=== PATIENT | female | born 1985 | race Caucasian/White ===

== ENCOUNTER → 2016-12-31 21:24 | Emergency (ER) | payer BC ==
[~2016-12-31 21:24] MED LIST: Ketorolac INJ* 30 MG/ML 1 ML VIAL IV PUSH ONE; LORazepam INJ* 2 MG/ML 1 ML VIAL IV PUSH ONE; NS 0.9% 1000 ML* 1,000 ML IV ONE
--- NOTE | 2016-12-31 22:29 | ED ---
Yasir Cosby Aidan, scribed for Kayden Griffin MD on 12/31/16 at 2224 . 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 Ibuprofen did not alleviate any of her back pain. Today, while lying down after work, her back pain worsened, so she came in to the ED. Pt is allergic to perdiem and Vicodin. - History of Current Complaint Chief Complaint: EDBackInjuryPain Stated Complaint: BACK PAIN RADIATING DOWN LEGS Time Seen by Provider: 12/31/16 22:05 Hx Obtained From: Patient Hx Last Menstrual Period: 3 MONTHS AGO Onset/Duration: Sudden Onset, Lasting Days, Still Present Onset/Duration: Started Days Ago, Still Present Timing: Constant - however, her back pain worsened today while lying down Back Pain Location: Is Diffuse Severity Initially: Severe Severity Currently: Moderate - [id number] Pain Intensity: 8 Pain Scale Used: 0-10 Numeric Character: Sharp Aggravating Symptom(s): Nothing - lying down seemed to aggravate her pain today. Alleviating Symptom(s): Nothing - unknown Associated Signs And Symptoms: Positive: Other - some light red vaginal bleeding just after the incident that caused her back pain Related History: Occupational Injury - Risk Factors AAA Risk Factors: Hypertension TAD Risk Factors: Hypertension - Allergies/Home Medications Allergies/Adverse Reactions: Allergies Allergy/AdvReac Type Severity Reaction Status Date / Time Cefaclor [From Ceclor] Allergy Rash Verified 11/03/15 17:43 Hydrocodone [From Vicodin] Allergy Hives Verified 11/03/15 17:43 Phenazopyridine Allergy Rash Verified 11/03/15 17:43 [From Pyridium] PMH/Surg Hx/FS Hx/Imm Hx Endocrine/Hematology History: Denies: Hx Diabetes, Hx Thyroid Disease Cardiovascular History: Reports: Hx Hypertension Denies: Hx Congestive Heart Failure Respiratory History: Denies: Hx Asthma, Hx Chronic Obstructive Pulmonary Disease (COPD) GI History: Denies: Hx Ulcer History: Denies: Hx Renal Disease - Surgical History Surgery Procedure, Year, and Place: R foot FB Infectious Disease History: No Infectious Disease History: Denies: Hx Hepatitis, Hx Human Immunodeficiency Virus (HIV), Traveled Outside the [place] in Last 30 Days - Family History Known Family History: Positive: Hypertension, Diabetes - Social History Occupation: Employed Full-time Lives: With Family Alcohol Use: Occasionally Substance Use Type: Reports: None Smoking Status (MU): Never Smoked Tobacco Review of Systems Constitutional: Negative Eyes: Negative ENT: Negative Cardiovascular: Negative Respiratory: Negative Gastrointestinal: Negative Genitourinary: Negative Positive: hematuria - light red vaginal bleeding post accident. Negative: burning, dysuria, discharge, frequency, flank pain, incontinence, pain, urgency Positive: Arthralgia - back pain. Negative: Myalgia, Decreased ROM, Edema Skin: Negative Neurological: Negative Psychological: Normal All Other Systems Reviewed And Are Negative: Yes Physical Exam Triage Information Reviewed: Yes Vital Signs On Initial Exam: Initial Vitals Temp Pulse Resp BP Pulse Ox 98.4 F 106 20 142/90 98 12/31/16 21:35 12/31/16 21:35 12/31/16 21:35 12/31/16 21:35 12/31/16 21:35 Vital Signs Reviewed: Yes Appearance: Positive: Well-Appearing, Pain Distress - mild discomfort Skin: Positive: Warm Head/Face: Positive: Normal Head/Face Inspection Eyes: Positive: LISA ENT: Positive: Hearing grossly normal Neck: Positive: Supple Respiratory/Lung Sounds: Positive: Clear to Auscultation, Breath Sounds Present Cardiovascular: Positive: RRR Abdomen Description: Positive: Nontender, Soft Musculoskeletal: Positive: Other - mild lower lumbar paraspinal spasm Neurological: Positive: Sensory/Motor Intact, Alert, Oriented to Person Place, Time Psychiatric: Positive: Affect/Mood Appropriate Diagnostics - Vital Signs Vital Signs Temp Pulse Resp BP Pulse Ox 12/31/16 21:40 98.4 F 106 20 142/90 98 12/31/16 21:35 98.4 F 106 20 142/90 98 - Laboratory Result Diagrams: 12/31/16 22:51 12/31/16 22:51 Lab Statement: Any lab studies that have been ordered have been reviewed, and results considered in the medical decision making process. 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 After providing the patient with pain medication, conducting a thorough examination, and providing her with perscriptions, it has been determined that she is ready for discharge. Dx of low back pain. - Diagnoses Provider Diagnoses: Low back pain Discharge - Discharge Plan Condition: Stable Disposition: HOME Discharge Disposition Comment: Please follow up with your primary care physician within 2 days. Prescriptions: Cyclobenzaprine TAB* [Flexeril 10 MG TAB*] 10 mg PO TID #30 tab Ibuprofen TAB* [Motrin TAB* 800 MG] 800 mg PO TID #30 tab Patient Education Materials: Back Pain (ED) Referrals: Jim Arriaza MD [Primary Care Provider] - The documentation as recorded by the Yasir shipman Aidan accurately reflects the service I personally performed and the decisions made by me, Kayden Griffin MD.
[2016-12-31 23:10] LABS: Hematocrit 41 % (35-47); Hemoglobin 13.2 g/dl (12.0-16.0); Mean Corpuscular HGB Conc 32 g/dl (31-36); Mean Corpuscular Hemoglobin 25 pg (27-31); Mean Corpuscular Volume 78 fL (80-97); Mean Platelet Volume 9 um3 (7.4-10.4); Red Blood Count 5.23 10^6/ul (4.0-5.4); Red Cell Distribution Width 16 % (10.5-15); White Blood Count 7.4 10^3/ul (3.5-10.8)
[2016-12-31 23:24] LABS: Anion Gap 7 mmol/L (2-11); BUN/Creatinine Ratio 18.4 (8-20); Blood Urea Nitrogen 16 mg/dL (6-24); CO2 Carbon Dioxide 24 mmol/L (22-32); Calcium 8.7 mg/dL (8.6-10.3); Chloride 102 mmol/L (101-111); Glucose 117 mg/dL (70-100); Potassium 3.7 mmol/L (3.5-5.0); Sodium 133 mmol/L (133-145)
[2016-12-31 23:25] VITALS: BP 128/77
== END | disposition home or self-care (01) ==
LOC: ED 21:24
DX: M54.5 Low back pain (principal); R31.9 Hematuria, unspecified
CPT/HCPCS: 36415; 80048; 84702; 85025; 96374; 96375; 99283; J1885; J2060

== ENCOUNTER 2017-02-25 19:44 | Emergency (ER) | payer SELFPAY ==
[2017-02-25 19:51] VITALS: BP 146/90
--- NOTE | 2017-02-25 21:27 | RAD ---
INDICATION: Trauma, low back pain. COMPARISON: There are no prior studies available for comparison. TECHNIQUE: 5 views of the lumbar spine were obtained including lateral, oblique, AP and a coned-down lateral view of the lumbar sacral junction. FINDINGS: There is a mild scoliosis convex toward the right side. The vertebra are otherwise in normal alignment. No fracture is seen. Disc spaces appear maintained. IMPRESSION: NO EVIDENCE FOR FRACTURE.
--- NOTE | 2017-02-25 21:28 | RAD ---
INDICATION: Sacrococcygeal injury. COMPARISON: There are no prior studies available for comparison. TECHNIQUE: 3 views of the sacrococcygeal spine were obtained. FINDINGS: The vertebra are in normal alignment. No fracture is seen. IMPRESSION: NO EVIDENCE FOR FRACTURE.
--- NOTE | 2017-02-25 21:29 | RAD ---
INDICATION: Right ankle injury. TECHNIQUE: 3 views of the right ankle were obtained. FINDINGS: There is diffuse soft tissue swelling which is most prominent along the lateral aspect of the ankle. The bones are normal alignment. No fracture is seen. Joint spaces appear maintained. IMPRESSION: SOFT TISSUE SWELLING, NO FRACTURE IS SEEN.
--- NOTE | 2017-02-25 21:31 | RAD ---
INDICATION: Right foot injury. TECHNIQUE: 3 views of the right foot were obtained. FINDINGS: There is soft tissue swelling present along the dorsal aspect of the foot. The bones are in normal alignment. No fracture is seen. Joint spaces appear maintained. IMPRESSION: SOFT TISSUE SWELLING, NO FRACTURE IS SEEN.
--- NOTE | 2017-02-25 22:14 | UC ---
Yasir Cosby Aidan, scribed for Katerin Mcnulty MD on 02/25/17 at 2053 . Back Pain HPI - HPI Summary HPI Summary: 31 y/o female presents to the Urgent Care with a complaint of acute, constant, moderate (7/10) lower back pain that resulted after slipping down a bank and landing on her back while fishing. Associated symptoms include right ankle pain , right ankle swelling, and lower extremity pain bilaterally. 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 Around 1600 tonight, she took Ibuprofen, which did not alleviate much pain. - History of Current Complaint Chief Complaint: UCBackPain Stated Complaint: ANKLE AND BACK INJURY FROM A FALL Time Seen by Provider: 02/25/17 20:29 Hx Obtained From: Patient Hx Last Menstrual Period: 3 MONTHS AGO ?: No Onset/Duration: Sudden Onset, Lasting Days, Still Present Timing: Constant Severity Initially: Moderate Severity Currently: Moderate Pain Intensity: 7 - per nurse's note Pain Scale Used: 0-10 Numeric Back Pain: Is Diffuse - @ lower back, Is Discrete @ - right ankle Character: Aching Aggravating: Nothing - unknown Alleviating: Nothing - unknown Associated Signs And Symptoms: Positive: Swelling - @ right ankle, Other - right ankle pain, bilateral lower extremity pain Related History: Occupational Injury - Pt reinjured her back 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 at work (see HPI) - Allergies/Home Medications Allergies/Adverse Reactions: Allergies Allergy/AdvReac Type Severity Reaction Status Date / Time Cefaclor [From Ceclor] Allergy Rash Verified 02/25/17 19:51 Hydrocodone [From Vicodin] Allergy Hives Verified 02/25/17 19:51 Phenazopyridine Allergy Rash Verified 02/25/17 19:51 [From Pyridium] PMH/Surg Hx/FS Hx/Imm Hx - Surgical History Surgical History: Yes Surgery Procedure, Year, and Place: R foot FB - Family History Known Family History: Positive: Hypertension, Diabetes - Social History Occupation: Employed Full-time Lives: With Family Alcohol Use: None Substance Use Type: None Smoking Status (MU): Never Smoked Tobacco Review of Systems Constitutional: Negative Skin: Negative Eyes: Negative ENT: Negative Respiratory: Negative Cardiovascular: Negative Gastrointestinal: Negative Genitourinary: Negative Motor: Negative Neurovascular: Negative Musculoskeletal: Arthralgia - BACK PAIN, ANKLE PAIN WITH ASSOCIATED SWELLING Neurological: Negative Psychological: Negative All Other Systems Reviewed And Are Negative: Yes Physical Exam Triage Information Reviewed: Yes Appearance: Well-Nourished Vital Signs: Initial Vital Signs Temp 97.4 F 02/25/17 19:48 Pulse 90 02/25/17 19:48 Resp 18 02/25/17 19:48 BP 146/90 02/25/17 19:48 Pulse Ox 100 02/25/17 19:48 Vital Signs Reviewed: Yes Eye Exam: Normal ENT Exam: Normal ENT: Positive: Normal ENT inspection Neck exam: Normal Neck: Positive: Supple, Nontender, No Lymphadenopathy Respiratory Exam: Normal, Other - no dyspnea, no tachypnea, normal respiratory rate Cardiovascular Exam: Normal Cardiovascular: Positive: RRR, No Murmur, Pulses Normal, Brisk Capillary Refill , Other: - good general skin color, Abdominal Exam: Normal Abdomen Description: Positive: Nontender, No Organomegaly, Soft Bowel Sounds: Positive: Present Musculoskeletal: Positive: Strength Intact, Other: - tenderness over the lateral malleolus on right side and tenderness over talofibular region on the right sideno proximal tib/fib tenderness on the right, no proximal tib/fib tenderness on the right, DP&PT good, no tenderness to the left foot, she does have diffuse lumbar sacral tenderness, DTRs: BR Patella are 2+ equal bilat. Neurological Exam: Normal, Other - nonfocal, grossly intact Neurological: Positive: Alert Psychological Exam: Normal, Other - responds easily and appropriately Psychological: Positive: Age Appropriate Behavior Skin Exam: Normal, Other - no visible or reported rash Diagnostics - Radiology FOOT X-RAY Xray Interpretation: No Acute Changes - IMPRESSION: Mild tissue swelling, no fracture is seen. Radiology Interpretation Completed By: Radiologist SACRUM AND COCCYX Xray Interpretation: No Acute Changes - IMPRESSION: No fracture is seen Radiology Interpretation Completed By: Radiologist ANKLE X-RAY Xray Interpretation: No Acute Changes - IMPRESSION: Soft tissue swelling. No fracture is seen Radiology Interpretation Completed By: Radiologist LUMBAR SPINE X-RAY Xray Interpretation: No Acute Changes - IMPRESSION: No evidence for fracture Radiology Interpretation Completed By: Radiologist Back Pain Course/Dx - Course Course Of Treatment: no new problems in ccc. reviewed xray results, and need for f/u. crutches considered but not feasible 2/2 back injury. cam boot today , but will send home with gel splint in case back hurts from misbalance. d/w pt. allergy to hydrocodone. rx - ibuprofen, flexeril (d/w pt). work note until tuesday (declines longer) - Differential Dx/Diagnosis Provider Diagnoses: acute ankle sprain. low back sprain Discharge - Discharge Plan Condition: Stable Disposition: HOME Prescriptions: Cyclobenzaprine TAB* [Flexeril 10 MG TAB*] 10 mg PO TID PRN #20 tab PRN Reason: Spasms Ibuprofen TAB* [Motrin TAB* 800 MG] 800 mg PO Q8H PRN #30 tab PRN Reason: Pain Patient Education Materials: Ankle Sprain (ED), Low Back Strain (ED) Forms: *Work Release Referrals: Mady Guzman NP [Primary Care Provider] - Additional Instructions: Follow up with your primary care provider next week, if possible for a recheck. Seek medical attention sooner for worse or new problems in the meantime. The documentation as recorded by the Yasir shipman Aidan accurately reflects the service I personally performed and the decisions made by me, Katerin Mcnulty MD.
== END 2017-02-25 22:16 | disposition home or self-care (01) ==
LOC: UCEAST 19:44
DX: S93.401A Sprain of unspecified ligament of right ankle, initial encounter (principal); S33.5XXA Sprain of ligaments of lumbar spine, initial encounter; W01.0XXA Fall on same level from slipping, tripping and stumbling without subsequent striking against object, initial encounter; Z88.5 Allergy status to narcotic agent
CPT/HCPCS: 72110; 72220; 99213; G0463

== ENCOUNTER 2018-03-10 18:52 | Emergency (ER) | payer BC ==
--- NOTE | 2018-03-10 21:10 | RAD ---
INDICATION: Chest pain COMPARISON: None TECHNIQUE: PA and lateral views of the chest were obtained. FINDINGS: The heart and mediastinum are normal in size and contour. The lungs are grossly clear. There is no evidence of large pleural effusion. Visualized bones are normal for the patient's age. There is no radiographic evidence of free air beneath the diaphragm IMPRESSION: No radiographic evidence of acute cardiopulmonary disease.
[2018-03-10 21:25] LABS: Urine Appearance Cloudy; Urine Blood Negative (Negative); Urine Color Straw; Urine Ketones Negative (Negative); Urine Protein Negative (Negative); Urine Specific Gravity 1.009 (1.010-1.030); Urine Urobilinogen Negative (Negative)
[2018-03-10 21:59] LABS: ABS Basophils 0.1 10^3/ul (0-0.2); ABS Eosinophils 0.2 10^3/ul (0-0.6); ABS Lymphocytes 3.2 10^3/ul (1.0-4.8); ABS Monocytes 0.8 10^3/ul (0-0.8); ABS Neutrophils 5.3 10^3/ul (1.5-7.7); ABS Nucleated RBC 0 10^3/ul; Eosinophil % 1.6 % (0-6); Hematocrit 43 % (35-47); Hemoglobin 14.4 g/dl (12.0-16.0); Lymphocyte % 33.3 % (25-47); Mean Corpuscular HGB Conc 34 g/dl (31-36); Mean Corpuscular Hemoglobin 27 pg (27-31); Mean Corpuscular Volume 80 fL (80-97); Mean Platelet Volume 9.2 um3 (7.4-10.4); Nucleated Red Blood Cells % 0; Platelet Count 296 10^3/ul (150-450); Red Blood Count 5.41 10^6/ul (4.00-5.40); Red Cell Distribution Width 15 % (10.5-15); White Blood Count 9.5 10^3/ul (3.5-10.8)
[2018-03-10 22:13] LABS: INR 1.07 (0.77-1.02)
[2018-03-10 22:20] LABS: EGFR Non-African American 72.6 (>60)
[2018-03-10] MEDS ORDERED: Ketorolac INJ* 30 MG/ML 1 ML VIAL IM ONE (23:10)
[2018-03-10] MEDS ORDERED: Cyclobenzaprine TAB* 10 MG PO ONE (23:29)
[2018-03-11] MEDS ORDERED: Magnesium Oxide TAB* 400 MG PO ONE (00:30)
[2018-03-11 01:19] VITALS: BP 136/101
--- NOTE | 2018-03-12 13:13 | ED ---
Graham Cosby Rebecca, scribed for Natty Shell MD on 03/10/18 at 2048 . HPI Chest Pain - HPI Summary HPI Summary: Pt is a 32 y/o F who presents to ED c/o central CP for 2 days. Sx have been intermittent since onset, characterized as sharp. Currently, pain is moderate, ranked 6/10 and has been taking Ibuprofen which is not improved sx. Pain is worse with lying down and radiates to and from her mid back. Additionally c/o LE cramping and GALICIA. Notes swelling in her bilateral hands and feet for which she is on Furosemide. Denies nausea. Confirms that her urine has not been abnormally colored.(mother has porphyria). No prior similar episodes. Is currently on Furosemide (20 mg) and amlodipine (20 mg BP has been in 120s). 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 Has an IUD, so she has not had a period in at least a year. FHx porphyria (mother). - History of Current Complaint Chief Complaint: EDChestPainROMI Hx Obtained From: Patient Hx Last Menstrual Period: 3 MONTHS AGO, has IUD Onset/Duration: Started Days Ago - 2 days, Still Present Timing: Intermittent Current Severity: Moderate Pain Intensity: 6 Pain Scale Used: 0-10 Numeric Chest Pain Location: Mid Sternal Chest Pain Radiates: Yes Chest Pain Radiates To:: Back Character: Sharp/Stabbing Aggravating Factor(s): Recumbent Position Alleviating Factor(s): Nothing Associated Signs and Symptoms: Positive: Chest Pain, Other: - LE cramping. Negative: Nausea - Allergy/Home Medications Allergies/Adverse Reactions: Allergies Allergy/AdvReac Type Severity Reaction Status Date / Time acetaminophen [From Vicodin] Allergy Hives Verified 03/10/18 19:18 cefaclor [From Ceclor] Allergy Rash Verified 03/10/18 19:18 hydrocodone [From Vicodin] Allergy Hives Verified 03/10/18 19:18 phenazopyridine Allergy Rash Verified 03/10/18 19:18 [From Pyridium] PMH/Surg Hx/FS Hx/Imm Hx Previously Healthy: No Endocrine/Hematology History: Denies: Hx Diabetes, Hx Thyroid Disease Cardiovascular History: Reports: Hx Hypertension Denies: Hx Congestive Heart Failure Respiratory History: Denies: Hx Asthma, Hx Chronic Obstructive Pulmonary Disease (COPD) GI History: Denies: Hx Ulcer History: Denies: Hx Renal Disease Musculoskeletal History: Reports: Other Musculoskeletal History - 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 - Surgical History Surgery Procedure, Year, and Place: R foot FB - Immunization History Date of Tetanus Vaccine: utd Date of Influenza Vaccine: utd Infectious Disease History: No Infectious Disease History: Denies: Hx Hepatitis, Hx Human Immunodeficiency Virus (HIV), Traveled Outside the [place] in Last 30 Days - Family History Known Family History: Positive: Hypertension, Diabetes, Other - porphyria ( mother) - Social History Lives: With Family Alcohol Use: None Substance Use Type: Reports: None Smoking Status (MU): Never Smoked Tobacco Review of Systems Negative: Fever Positive: Chest Pain Respiratory: Negative Negative: Nausea Positive: Other - LE cramping, bilateral hand and foot swelling Skin: Negative Positive: Headache Psychological: Normal All Other Systems Reviewed And Are Negative: Yes Physical Exam - Summary Physical Exam Summary: Appearance: Well-appearing, moderate pain distress, obese Skin: Warm, color reflects adequate perfusion, dry Head: Normal Head/Face inspection, atraumatic Eyes: Conjunctiva clear ENT: Normal inspection Neck: Supple, no nodes, no JVD Respiratory: Lungs clear, normal breath sounds, no respiratory distress Cardio: RRR, No murmur, pulses normal, brisk capillary refill, chest pain is reproducible, but not completely the same Abdomen: Soft, nontender Bowel sounds: Present Musculoskeletal: Strength Intact/ROM intact, no calf tenderness, no edema. No CVAT, no spinal tenderness Psychological: Normal Neuro: Alert, muscle tone normal, no focal deficit Triage Information Reviewed: Yes Vital Signs On Initial Exam: Initial Vitals Temp Pulse Resp BP Pulse Ox 97.6 F 90 16 148/108 100 03/10/18 19:18 03/10/18 19:18 03/10/18 19:18 03/10/18 19:18 03/10/18 19:18 Vital Signs Reviewed: Yes Diagnostics - Vital Signs Vital Signs Temp Pulse Resp BP Pulse Ox 03/10/18 19:18 97.6 F 90 16 148/108 100 - Laboratory Lab Results: Lab Results 03/10/18 03/10/1818 Range/Units 21:00 21:00 21:50 WBC 9.5 (3.5-10.8) 10^3/ul RBC 5.41 H (4.00-5.40) 10^6/ul Hgb 14.4 (12.0-16.0) g/dl Hct 43 (35-47) % MCV 80 (80-97) fL MCH 27 (27-31) pg MCHC 34 (31-36) g/dl RDW 15 (10.5-15) % Plt Count 296 (150-450) 10^3/ul MPV 9.2 (7.4-10.4) um3 Neut % (Auto) 55.7 (38-83) % Lymph % (Auto) 33.3 (25-47) % [place] % (Auto) 8.6 H (0-7) % Eos % (Auto) 1.6 (0-6) % Baso % (Auto) 0.8 (0-2) % Absolute Neuts (auto) 5.3 (1.5-7.7) 10^3/ul Absolute Lymphs (auto) 3.2 (1.0-4.8) 10^3/ul Absolute Monos (auto) 0.8 (0-0.8) 10^3/ul Absolute Eos (auto) 0.2 (0-0.6) 10^3/ul Absolute Basos (auto) 0.1 (0-0.2) 10^3/ul Absolute Nucleated RBC 0 10^3/ul Nucleated RBC % 0 INR (Anticoag Therapy) (0.77-1.02) APTT (26.0-36.3) seconds D-Dimer, Quantitative (Less Than 230) ng/mL Sodium (135-145) mmol/L Potassium (3.5-5.0) mmol/L Chloride (101-111) mmol/L Carbon Dioxide (22-32) mmol/L Anion Gap (2-11) mmol/L BUN (6-24) mg/dL Creatinine (0.51-0.95) mg/dL Est GFR ( Amer) (>60) Est GFR (Non-Af Amer) (>60) BUN/Creatinine Ratio (8-20) Glucose (70-100) mg/dL Lactic Acid (0.5-2.0) mmol/L Calcium (8.6-10.3) mg/dL Magnesium (1.9-2.7) mg/dL Total Bilirubin (0.2-1.0) mg/dL AST (13-39) U/L ALT (7-52) U/L Alkaline Phosphatase (34-104) U/L Total Creatine Kinase (10-223) U/L CK-MB (CK-2) (0.6-6.3) ng/mL Troponin I (<0.04) ng/mL B-Natriuretic Peptide ( - 100) pg/mL Total Protein (6.4-8.9) g/dL Albumin (3.2-5.2) g/dL Globulin (2-4) g/dL Albumin/Globulin Ratio (1-3) TSH (0.34-5.60) mcIU/mL Thyroxine (T4) (6.09-12.23) mcg/mL Beta HCG, Quant mIU/mL Urine Color Straw Urine Appearance Cloudy Urine pH 6.0 (5-9) Ur Specific [place] 1.009 L (1.010-1.030) Urine Protein Negative (Negative) Urine Ketones Negative (Negative) Urine Blood Negative (Negative) Urine Nitrate Negative (Negative) Urine Bilirubin Negative (Negative) Urine Urobilinogen Negative (Negative) Ur Leukocyte Esterase Trace A (Negative) Urine WBC (Auto) Trace(0-5/hpf) (Absent) Urine RBC (Auto) 1+(3-5/hpf) A (Absent) Ur Squamous Epith Cells Present A (Absent) Urine Bacteria 1+ A (Absent) Urine Glucose Negative (Negative) Urine Opiates Screen None detected (None Detect) Ur Barbiturates Screen None detected (None Detect) Ur Phencyclidine Scrn None detected (None Detect) Ur Amphetamines Screen None detected (None Detect) U Benzodiazepines Scrn None detected (None Detect) Urine Cocaine Screen None detected (None Detect) U Cannabinoids Screen None detected (None Detect) 03/10/18 03/10/18 03/10/18 Range/Units 21:50 21:50 21:50 WBC (3.5-10.8) 10^3/ul RBC (4.00-5.40) 10^6/ul Hgb (12.0-16.0) g/dl Hct (35-47) % MCV (80-97) fL MCH (27-31) pg MCHC (31-36) g/dl RDW (10.5-15) % Plt Count (150-450) 10^3/ul MPV (7.4-10.4) um3 Neut % (Auto) (38-83) % Lymph % (Auto) (25-47) % [place] % (Auto) (0-7) % Eos % (Auto) (0-6) % Baso % (Auto) (0-2) % Absolute Neuts (auto) (1.5-7.7) 10^3/ul Absolute Lymphs (auto) (1.0-4.8) 10^3/ul Absolute Monos (auto) (0-0.8) 10^3/ul Absolute Eos (auto) (0-0.6) 10^3/ul Absolute Basos (auto) (0-0.2) 10^3/ul Absolute Nucleated RBC 10^3/ul Nucleated RBC % INR (Anticoag Therapy) 1.07 H (0.77-1.02) APTT 30.4 (26.0-36.3) seconds D-Dimer, Quantitative < 200 (Less Than 230) ng/mL Sodium 139 (135-145) mmol/L Potassium 3.6 (3.5-5.0) mmol/L Chloride 100 L (101-111) mmol/L Carbon Dioxide 30 (22-32) mmol/L Anion Gap 9 (2-11) mmol/L BUN 16 (6-24) mg/dL Creatinine 0.91 (0.51-0.95) mg/dL Est GFR ( Amer) 87.8 (>60) Est GFR (Non-Af Amer) 72.6 (>60) BUN/Creatinine Ratio 17.6 (8-20) Glucose 114 H (70-100) mg/dL Lactic Acid 0.8 (0.5-2.0) mmol/L Calcium 9.5 (8.6-10.3) mg/dL Magnesium 2.1 (1.9-2.7) mg/dL Total Bilirubin 0.50 (0.2-1.0) mg/dL AST 15 (13-39) U/L ALT 25 (7-52) U/L Alkaline Phosphatase 29 L (34-104) U/L Total Creatine Kinase 142 (10-223) U/L CK-MB (CK-2) 4.4 (0.6-6.3) ng/mL Troponin I 0.00 (<0.04) ng/mL B-Natriuretic Peptide ( - 100) pg/mL Total Protein 8.4 (6.4-8.9) g/dL Albumin 4.3 (3.2-5.2) g/dL Globulin 4.1 H (2-4) g/dL Albumin/Globulin Ratio 1.0 (1-3) TSH 3.83 (0.34-5.60) mcIU/mL Thyroxine (T4) 9.32 (6.09-12.23) mcg/mL Beta HCG, Quant < 0.60 mIU/mL Urine Color Urine Appearance Urine pH (5-9) Ur Specific [place] (1.010-1.030) Urine Protein (Negative) Urine Ketones (Negative) Urine Blood (Negative) Urine Nitrate (Negative) Urine Bilirubin (Negative) Urine Urobilinogen (Negative) Ur Leukocyte Esterase (Negative) Urine WBC (Auto) (Absent) Urine RBC (Auto) (Absent) Ur Squamous Epith Cells (Absent) Urine Bacteria (Absent) Urine Glucose (Negative) Urine Opiates Screen (None Detect) Ur Barbiturates Screen (None Detect) Ur Phencyclidine Scrn (None Detect) Ur Amphetamines Screen (None Detect) U Benzodiazepines Scrn (None Detect) Urine Cocaine Screen (None Detect) U Cannabinoids Screen (None Detect) 03/10/18 Range/Units 21:50 WBC (3.5-10.8) 10^3/ul RBC (4.00-5.40) 10^6/ul Hgb (12.0-16.0) g/dl Hct (35-47) % MCV (80-97) fL MCH (27-31) pg MCHC (31-36) g/dl RDW (10.5-15) % Plt Count (150-450) 10^3/ul MPV (7.4-10.4) um3 Neut % (Auto) (38-83) % Lymph % (Auto) (25-47) % [place] % (Auto) (0-7) % Eos % (Auto) (0-6) % Baso % (Auto) (0-2) % Absolute Neuts (auto) (1.5-7.7) 10^3/ul Absolute Lymphs (auto) (1.0-4.8) 10^3/ul Absolute Monos (auto) (0-0.8) 10^3/ul Absolute Eos (auto) (0-0.6) 10^3/ul Absolute Basos (auto) (0-0.2) 10^3/ul Absolute Nucleated RBC 10^3/ul Nucleated RBC % INR (Anticoag Therapy) (0.77-1.02) APTT (26.0-36.3) seconds D-Dimer, Quantitative (Less Than 230) ng/mL Sodium (135-145) mmol/L Potassium (3.5-5.0) mmol/L Chloride (101-111) mmol/L Carbon Dioxide (22-32) mmol/L Anion Gap (2-11) mmol/L BUN (6-24) mg/dL Creatinine (0.51-0.95) mg/dL Est GFR ( Amer) (>60) Est GFR (Non-Af Amer) (>60) BUN/Creatinine Ratio (8-20) Glucose (70-100) mg/dL Lactic Acid (0.5-2.0) mmol/L Calcium (8.6-10.3) mg/dL Magnesium (1.9-2.7) mg/dL Total Bilirubin (0.2-1.0) mg/dL AST (13-39) U/L ALT (7-52) U/L Alkaline Phosphatase (34-104) U/L Total Creatine Kinase (10-223) U/L CK-MB (CK-2) (0.6-6.3) ng/mL Troponin I (<0.04) ng/mL B-Natriuretic Peptide 6 ( - 100) pg/mL Total Protein (6.4-8.9) g/dL Albumin (3.2-5.2) g/dL Globulin (2-4) g/dL Albumin/Globulin Ratio (1-3) TSH (0.34-5.60) mcIU/mL Thyroxine (T4) (6.09-12.23) mcg/mL Beta HCG, Quant mIU/mL Urine Color Urine Appearance Urine pH (5-9) Ur Specific [place] (1.010-1.030) Urine Protein (Negative) Urine Ketones (Negative) Urine Blood (Negative) Urine Nitrate (Negative) Urine Bilirubin (Negative) Urine Urobilinogen (Negative) Ur Leukocyte Esterase (Negative) Urine WBC (Auto) (Absent) Urine RBC (Auto) (Absent) Ur Squamous Epith Cells (Absent) Urine Bacteria (Absent) Urine Glucose (Negative) Urine Opiates Screen (None Detect) Ur Barbiturates Screen (None Detect) Ur Phencyclidine Scrn (None Detect) Ur Amphetamines Screen (None Detect) U Benzodiazepines Scrn (None Detect) Urine Cocaine Screen (None Detect) U Cannabinoids Screen (None Detect) Result Diagrams: 03/10/18 21:50 03/10/18 21:50 Lab Statement: Any lab studies that have been ordered have been reviewed, and results considered in the medical decision making process. - Radiology CXR Xray Interpretation: No Acute Changes - No radiographic evidence of acute cardiopulmonary disease. ED physician reviewed this report. Radiology Interpretation Completed By: Radiologist - EKG 2014 Cardiac Rate: NL - 70 bpm EKG Rhythm: Sinus Rhythm ST Segment: Non-Specific - Inverted T waves in lead III Ectopy: None EKG Interpretation: Nl AVIVCT, nl QTC, nl axis EKG Comparison: Other - no prior to compare Re-Evaluation - Re-Evaluation First Eval Re-Evaluation Time: 23:10 Change: Unchanged Comment: still has chest pain, worse when lying down, radiates to back. No SOB. Pain is somewhat reproducible. Pt states she has had back pain in the past. Agrees to try toradol IM with cyclobenzaprine po. Advised that labs are OK. Second Eval Re-Evaluation Time: 23:20 Change: Improved Comment: Pain is improved, not completely gone, but pt states she is willing to go home. Chest Pain Course/Dx - Course Course Of Treatment: Pt with hx HTN on meds, and recently dx'd vascular disease in legs (minor), after eval for leg pain and cramps. Placed on Lasix, c/o chest pain radiating to back, worse when lying down. Labs including d dimer and troponin are neg. Because the pain has been going on for 2 days, a single troponin is sufficient to r/o ACS at this time. EKG shows inverted T waves in III but no pericarditis or ischemia. Pt states she had GERD when pg, and had symptoms, so does not feel this is GERD. Pt's chest pain is improved with toradol. Pt declines narcotic. Agrees to try cyclobenzaprine again as well, in case the pain in her back is causing her chest pain. Pt is discharged and advised to follow up with her Mady Guzman NP in 2-3 days if not completely well again. - Chest Pain Differential Diagnosis/HQI/PQRI: Acute [place], ACS, Angina, Chest Wall, GI Disease - Diagnoses Provider Diagnoses: Chest pain, Lumbosacral strain, Hypertension, poor control Discharge - Sign-Out/Discharge Documenting (check all that apply): Sign-Out Patient Signing out patient TO: Kelvin Gandara - Pending dispo, awaiting cardiac workup - Discharge Plan Condition: Stable Disposition: HOME Patient Education Materials: Chest Pain (ED), Leg Cramps (ED) Referrals: Mady Guzman NP [Primary Care Provider] - 2 Days Additional Instructions: You were given toradol 30mg injectable and cyclobenzaprine 10mg orally while you were in the ER with some relief. You were also given magnesium oxide 400mg orally for leg cramps. You labs and EKG and chest xray did not show that you needed any further emergency treatment or evaluation for your chest pain. You should have definite follow up with your nurse practitioner in the next 2-3 days. Return to the ER if you have any new or worsening symptoms. - Billing Disposition and Condition Condition: STABLE Disposition: Home The documentation as recorded by the Graham shipman Rebecca accurately reflects the service I personally performed and the decisions made by , Natty Shell MD.
== END 2018-03-11 01:19 | disposition home or self-care (01) ==
LOC: ED 18:52
DX: R07.9 Chest pain, unspecified (principal); S39.012A Strain of muscle, fascia and tendon of lower back, initial encounter; X58.XXXA Exposure to other specified factors, initial encounter; Y92.9 Unspecified place or not applicable; I10 Essential (primary) hypertension; I99.9 Unspecified disorder of circulatory system; Z79.899 Other long term (current) drug therapy; Z83.49 Family history of other endocrine, nutritional and metabolic diseases; Z97.5 Presence of (intrauterine) contraceptive device; Z88.6 Allergy status to analgesic agent; Z88.8 Allergy status to other drugs, medicaments and biological substances
CPT/HCPCS: 36415; 71046; 80053; 80307; 81003; 81015; 82550; 82553; 83605; 83735; 83880; 84436; 84443; 84484; 84702; 85025; 85379; 85610; 85730; 87086; 93005; 96372; 99282; A9270-GY; J1885

== ENCOUNTER 2018-06-19 02:15 | Emergency (ER) | payer BC ==
[2018-06-19] MEDS ORDERED: cloNIDine TAB* 0.1 MG PO ONE (03:08)
--- NOTE | 2018-06-19 03:09 | ED ---
Hypertension - HPI Summary HPI Summary: This patient is a 32 year old F presenting to [facility] with a chief complaint of HTN since 1 month ago. PMHx HTN. Rx doubling of her dosage 2 days ago. She denies fever and recent illness. She endorses medication compliance. She notes her blood pressure was averaging 160s/100s. She endorses a GALICIA. She denies current CP, SOB, and racing palpitations. She does endorse resolved tight CP and right arm pain. PMHx vascular disease, Rx Lasix 20 mg, 10 mg amlodipine. - History of Current Complaint Chief Complaint: EDHypertension Stated Complaint: HIGH HR/BP Time Seen by Provider: 06/19/18 02:25 Hx Obtained From: Patient Hx Last Menstrual Period: IUD Onset/Duration: Started Weeks Ago, Still Present Timing: Constant Reported Blood Pressure Prior To Arrival: 160s/100s Aggravating Factor(s): Nothing Alleviating Factor(s): Nothing Associated Signs & Symptoms: Chest Pain, Headaches, Pain - RUE, Other: - Racing palpitations Current Medications: Ca [place], Diuretic - 20 mg lasix - Allergies/Home Medications Allergies/Adverse Reactions: Allergies Allergy/AdvReac Type Severity Reaction Status Date / Time acetaminophen [From Vicodin] Allergy Hives Verified 06/19/18 02:27 cefaclor [From Ceclor] Allergy Rash Verified 06/19/18 02:27 hydrocodone [From Vicodin] Allergy Hives Verified 06/19/18 02:27 phenazopyridine Allergy Rash Verified 06/19/18 02:27 [From Pyridium] Home Medications: Home Medications Furosemide 20 mg PO DAILY 06/19/18 [History Confirmed 06/19/18] amLODIPine TAB* [Norvasc 5 mg TAB*] 10 mg PO DAILY 06/19/18 [History Confirmed 06/19/18] PMH/Surg Hx/FS Hx/Imm Hx Endocrine/Hematology History: Denies: Hx Diabetes, Hx Thyroid Disease Cardiovascular History: Reports: Hx Hypertension Denies: Hx Congestive Heart Failure Respiratory History: Denies: Hx Asthma, Hx Chronic Obstructive Pulmonary Disease (COPD) GI History: Denies: Hx Ulcer History: Denies: Hx Renal Disease Musculoskeletal History: Reports: Other Musculoskeletal History - 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 Sensory History: Reports: Hx Contacts or Glasses Denies: Hx Legally Blind, Hx Deafness Opthamlomology History: Reports: Hx Contacts or Glasses Denies: Hx Legally Blind EENT History: Denies: Hx Deafness Psychiatric History: Denies: Hx Schizophrenia - Surgical History Surgery Procedure, Year, and Place: R foot FB - Immunization History Date of Tetanus Vaccine: utd Date of Influenza Vaccine: 05/2018 Infectious Disease History: No Infectious Disease History: Denies: Hx Hepatitis, Hx Human Immunodeficiency Virus (HIV), Traveled Outside the [place] in Last 30 Days - Family History Known Family History: Positive: Hypertension, Diabetes, Other - porphyria ( mother) - Social History Occupation: Employed Full-time Alcohol Use: None Substance Use Type: Reports: None Smoking Status (MU): Never Smoked Tobacco Review of Systems Negative: Fever Positive: Palpitations, Chest Pain Negative: Shortness Of Breath Positive: no symptoms reported Positive: Myalgia - RUE Positive: Headache All Other Systems Reviewed And Are Negative: Yes Physical Exam - Summary Physical Exam Summary: Appearance: Well appearing, no pain distress Skin: warm, dry, reflects adequate perfusion Head/face: normal Eyes: EOMI, LISA ENT: normal Neck: supple, non-tender Respiratory: CTA, breath sounds present Cardiovascular: RRR, pulses symmetrical Abdomen: non-tender, soft Bowel: present Musculoskeletal: normal, strength/ROM intact Neuro: normal, sensory motor intact, A&Ox3 Triage Information Reviewed: Yes Vital Signs On Initial Exam: Initial Vitals Temp Pulse Resp BP Pulse Ox 97.7 F 88 15 139/103 100 06/19/18 02:15 06/19/18 02:15 06/19/18 02:15 06/19/18 02:15 06/19/18 02:15 Vital Signs Reviewed: Yes - Aaron Coma Scale Best Eye Response: 4 - Spontaneous Best Motor Response: 6 - Obeys Commands Best Verbal Response: 5 - Oriented Coma Scale Total: 15 Diagnostics - Vital Signs Vital Signs Temp Pulse Resp BP Pulse Ox 06/19/18 02:15 97.7 F 88 15 139/103 100 - Laboratory Result Diagrams: 06/19/18 03:11 06/19/18 03:11 Lab Statement: Any lab studies that have been ordered have been reviewed, and results considered in the medical decision making process. - Radiology CXR Radiology Interpretation Completed By: ED Physician - Negative. Pending official imaging report. - CT Brain CT Interpretation: No Acute Changes CT Interpretation Completed By: Radiologist - No acute findings. Dr. Dhillon has reviewed this report. - EKG 0313 Cardiac Rate: NL - 82 EKG Rhythm: Sinus Rhythm ST Segment: Normal Ectopy: None EKG Interpretation: No acute changes. Hypertension Course/Dx - Course Course Of Treatment: A 32-year-old F presents to the ED with a CC of HTN for 1 month. (+) CP, RUE pain, GALICIA, palpitations. (-) fever, recent illness. PMHx HTN, 2x dose 2 days ago, has been in 160s/100s for past month. A CXR was (-). A CT brain was (-). An EKG reveals NSR at 82 BPM with no acute changes. In the ED course, pt was given catapres. Labs obtained and reviewed. - Diagnoses Differential Diagnosis/HQI PQRI: Hypertension, Other - headache Provider Diagnoses: Headache, HTN (hypertension) Discharge - Sign-Out/Discharge Documenting (check all that apply): Patient Departure - discharge - Discharge Plan Condition: Stable Disposition: HOME Patient Education Materials: Hypertension (ED), General Headache (ED) Referrals: Mady Guzman INFECTION CONTROL PRACTITIONER [Primary Care Provider] - 3 Days Additional Instructions: Return to the emergency department for any new or worsening symptoms. - Billing Disposition and Condition Condition: STABLE Disposition: Home - Attestation Statements Document Initiated by Laverne: Yes Documenting Scribe: Johny Cleveland Provider For Whom Laverne is Documenting (Include Credential): Dr. Adan Dhillon MD Scribe Attestation: Johny Cosby scribed for Dr. Adan Dhillon MD on 06/19/18 at 0538. Scribe Documentation Reviewed: Yes Provider Attestation: The documentation as recorded by the Johny shipman accurately reflects the service I personally performed and the decisions made by me, Dr. Adan Dhillon MD
[2018-06-19 03:30] LABS: ABS Basophils 0 10^3/ul (0-0.2); ABS Eosinophils 0.1 10^3/ul (0-0.6); ABS Lymphocytes 2.9 10^3/ul (1.0-4.8); ABS Monocytes 0.6 10^3/ul (0-0.8); ABS Neutrophils 4.6 10^3/ul (1.5-7.7); ABS Nucleated RBC 0 10^3/ul; Eosinophil % 1.7 % (0-6); Hematocrit 40 % (35-47); Hemoglobin 13.1 g/dl (12.0-16.0); Lymphocyte % 35.3 % (25-47); Mean Corpuscular HGB Conc 33 g/dl (31-36); Mean Corpuscular Hemoglobin 27 pg (27-31); Mean Corpuscular Volume 82 fL (80-97); Mean Platelet Volume 9.2 um3 (7.4-10.4); Nucleated Red Blood Cells % 0.1; Platelet Count 235 10^3/ul (150-450); Red Blood Count 4.88 10^6/ul (4.00-5.40); Red Cell Distribution Width 15 % (10.5-15); White Blood Count 8.3 10^3/ul (3.5-10.8)
[2018-06-19 03:46] LABS: EGFR Non-African American 81.9 (>60)
--- NOTE | 2018-06-19 03:48 | RAD ---
EXAM: CT Head Without Intravenous Contrast CLINICAL HISTORY: 32 years old, female; Signs and symptoms; Dizziness; Additional info: Headache TECHNIQUE: Axial computed tomography images of the head/brain without intravenous contrast. All CT scans at this facility use at least one of these dose optimization techniques: automated exposure control; mA and/or kV adjustment per patient size (includes targeted exams where dose is matched to clinical indication); or iterative reconstruction. COMPARISON: No relevant prior studies available. FINDINGS: Brain: Unremarkable. No hemorrhage. No significant white matter disease. No edema. Ventricles: Unremarkable. No ventriculomegaly. Bones/joints: Unremarkable. No acute fracture. Soft tissues: Unremarkable. Sinuses: Unremarkable as visualized. No acute sinusitis. Mastoid air cells: Unremarkable as visualized. No mastoid effusion. IMPRESSION: No acute findings.
[2018-06-19 05:03] VITALS: BP 125/86
--- NOTE | 2018-06-19 08:31 | RAD ---
HISTORY: dizzy COMPARISONS: March 10, 2018 VIEWS: 1: frontal AP view of the chest at 3:28 AM FINDINGS: LINES AND TUBES: None. CARDIOMEDIASTINAL SILHOUETTE: The cardiomediastinal silhouette is normal for portable technique. PLEURA: The costophrenic angles are sharp. No pleural abnormalities are noted. LUNG PARENCHYMA: The lung volumes are low. The lungs are clear accounting for the phase of respiration. ABDOMEN: The upper abdomen is clear. There is no subphrenic gas. BONES AND SOFT TISSUES: No bone or soft tissue abnormalities are noted. IMPRESSION: NO ACTIVE CARDIOPULMONARY DISEASE. R0
== END 2018-06-19 05:07 | disposition home or self-care (01) ==
LOC: ED 02:15
DX: R51 Headache (principal); I10 Essential (primary) hypertension; R07.89 Other chest pain; R00.2 Palpitations; Z88.6 Allergy status to analgesic agent; Z88.1 Allergy status to other antibiotic agents; Z88.5 Allergy status to narcotic agent; Z82.49 Family history of ischemic heart disease and other diseases of the circulatory system; Z83.3 Family history of diabetes mellitus
CPT/HCPCS: 36415; 70450; 71045; 80053; 84484; 84702; 85025; 93005; 99283

== ENCOUNTER 2018-06-21 14:53 | Emergency (ER) | payer BC ==
[2018-06-21] MEDS ORDERED: Labetalol IV* 5 MG/ML 20 ML VIAL IV PUSH ONE (15:21)
--- NOTE | 2018-06-21 15:28 | ED ---
Hypertension - HPI Summary HPI Summary: Patient is a 32 y/o female who presents to the ED c/o CP. Shes have elevated BP for 1 month and is currently trying to adjust her medications properly. Patients PCP has doubled her HTN medication dosage and is checking every other day to see if her BP goes down, which it has not. She was in the ED 2 days ago for HTN. For the past few weeks shes been having intermittent CP, which is described as tightness with occasional stabbing. Patient also c/o right arm numbness, nausea, and a 6/10 headache. Patient denies any vomiting or diaphoresis. No FHx of [place] by 32 years old. - History of Current Complaint Chief Complaint: EDHypertension Stated Complaint: HIGH BP Time Seen by Provider: 06/21/18 15:06 Hx Obtained From: Patient Hx Last Menstrual Period: IUD Onset/Duration: Started Weeks Ago - 2-3, Still Present Timing: Intermittent Reported Blood Pressure Prior To Arrival: 158/106 Aggravating Factor(s): Nothing Alleviating Factor(s): Nothing Associated Signs & Symptoms: Chest Pain, Headaches, Numbness - Right arm, Other : - Nausea - Allergies/Home Medications Allergies/Adverse Reactions: Allergies Allergy/AdvReac Type Severity Reaction Status Date / Time acetaminophen [From Vicodin] Allergy Hives Verified 06/19/18 02:27 cefaclor [From Ceclor] Allergy Rash Verified 06/19/18 02:27 hydrocodone [From Vicodin] Allergy Hives Verified 06/19/18 02:27 phenazopyridine Allergy Rash Verified 06/19/18 02:27 [From Pyridium] PMH/Surg Hx/FS Hx/Imm Hx Endocrine/Hematology History: Denies: Hx Diabetes, Hx Thyroid Disease Cardiovascular History: Reports: Hx Hypertension Denies: Hx Congestive Heart Failure Respiratory History: Denies: Hx Asthma, Hx Chronic Obstructive Pulmonary Disease (COPD) GI History: Denies: Hx Ulcer History: Denies: Hx Renal Disease Musculoskeletal History: Reports: Other Musculoskeletal History - 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 Sensory History: Reports: Hx Contacts or Glasses Denies: Hx Legally Blind, Hx Deafness Opthamlomology History: Reports: Hx Contacts or Glasses Denies: Hx Legally Blind Psychiatric History: Denies: Hx Schizophrenia - Surgical History Surgery Procedure, Year, and Place: R foot FB - Immunization History Date of Tetanus Vaccine: utd Date of Influenza Vaccine: 05/2018 Infectious Disease History: No Infectious Disease History: Denies: Hx Hepatitis, Hx Human Immunodeficiency Virus (HIV), Traveled Outside the [place] in Last 30 Days - Family History Known Family History: Positive: Hypertension, Diabetes, Other - porphyria ( mother) - Social History Alcohol Use: None Hx Substance Use: No Substance Use Type: Reports: None Hx Tobacco Use: No Smoking Status (MU): Never Smoked Tobacco Review of Systems Negative: Skin Diaphoresis Positive: Chest Pain Positive: Nausea. Negative: Vomiting Positive: Headache, Numbness - Right arm All Other Systems Reviewed And Are Negative: Yes Physical Exam - Summary Physical Exam Summary: VITAL SIGNS: Reviewed. GENERAL: Patient is a well-developed and nourished FEMALE who is lying comfortable in the stretcher. Patient is not in any acute respiratory distress. HEAD AND FACE: No signs of trauma. No ecchymosis, hematomas or skull depressions. No sinus tenderness. EYES: PERRLA, EOMI x 2, No injected conjunctiva, no nystagmus. EARS: Hearing grossly intact. Ear canals and tympanic membranes are within normal limits. MOUTH: Oropharynx within normal limits. NECK: Supple, trachea is midline, no adenopathy, no JVD, no carotid bruit, no c- spine tenderness, neck with full ROM. CHEST: Symmetric, no tenderness at palpation LUNGS: Clear to auscultation bilaterally. No wheezing or crackles. CVS: Regular rate and rhythm, S1 and S2 present, no murmurs or gallops appreciated. ABDOMEN: Soft, non-tender. No signs of distention. No rebound no guarding, and no masses palpated. Bowel sounds are normal. EXTREMITIES: FROM in all major joints, no edema, no cyanosis or clubbing. NEURO: Alert and oriented x 3. No acute neurological deficits. Speech is normal and follows commands. SKIN: Dry and warm Triage Information Reviewed: Yes Vital Signs On Initial Exam: Initial Vitals Temp Pulse Resp BP Pulse Ox 96.7 F 100 18 162/99 99 06/21/18 14:58 10 14:58 06/21/18 14:58 06/21/18 14:58 06/21/18 14:58 Vital Signs Reviewed: Yes Diagnostics - Vital Signs Vital Signs Temp Pulse Resp BP Pulse Ox 06/21/18 14:58 96.7 F 100 18 162/99 99 - Laboratory Result Diagrams: 06/21/18 15:42 06/21/18 15:42 Lab Statement: Any lab studies that have been ordered have been reviewed, and results considered in the medical decision making process. - Radiology CXR Xray Interpretation: No Acute Changes - NO ACTIVE CARDIOPULMONARY DISEASE. ED physician reviewed radiology report. Radiology Interpretation Completed By: Radiologist - EKG 15:23 Cardiac Rate: NL - 87 bpm EKG Rhythm: Sinus Rhythm EKG Interpretation: No ST elevations EKG Comparison: No Significant Change - to EKG on 06/19/18 Hypertension Course/Dx - Course Assessment/Plan: Patient is a 32 y/o female who presents to the ED c/o CP. She s have elevated BP for 1 month and is currently trying to adjust her medications properly. Patients PCP has doubled her HTN medication dosage and is checking every other day to see if her BP goes down, which it has not. She was in the ED 2 days ago for HTN. For the past few weeks shes been having intermittent CP, which is described as tightness with occasional stabbing. Patient also c/o right arm numbness, nausea, and a 6/10 headache. Patient denies any vomiting or diaphoresis. No FHx of [place] by 32 years old. Blood test results without any significant abnormality. The patient was given labetalol 20 mg IV and now the blood pressure is 123/69. Chest x-ray without any significant abnormality. EKG without any significant ST elevations. Since the patient is feeling better the patient was discharged home with follow-up with primary care physician. Patient is hemodynamically stable alert oriented 3. I discussed all the findings and test results with the patient. Patient was instructed to return to the emergency room immediately if any of the symptoms return or worsens. Plan of care was discussed with the patient and understands and agrees. All questions were answered at patient satisfaction. There were no further complaints or concerns. Lung exam before discharge: CTA B/L. Good air exchange. No wheezing or crackles heard. CVS: S1 and S2 present. No murmurs appreciated. Patient is alert and oriented x 3. Patient is hemodynamically stable. Patient will be discharged home with follow up PCP in the next 2-3 days - Diagnoses Provider Diagnoses: Uncontrolled hypertension Discharge - Sign-Out/Discharge Documenting (check all that apply): Patient Departure - Discharge - Discharge Plan Condition: Stable Disposition: HOME Patient Education Materials: Hypertension (ED) Referrals: Mady Guzman NP [Primary Care Provider] - 3 Days Additional Instructions: FOLLOW UP WITH YOUR PRIMARY CARE PROVIDER WITHIN ONE WEEK FOR HIGH BLOOD PRESSURE NOTED TODAY. RETURN TO THE ED FOR ANY WORSENING OR NEW SYMPTOMS. - Billing Disposition and Condition Condition: STABLE Disposition: Home - Attestation Statements Document Initiated by Scribe: Yes Documenting Scribe: Rachelle Pham Provider For Whom Laverne is Documenting (Include Credential): Rex Fernando MD Scribe Attestation: Rachelle Cosby, scribed for Rex Fernando MD on 06/22/18 at 1000. Scribe Documentation Reviewed: Yes Provider Attestation: The documentation as recorded by the Rachelle shipman accurately reflects the service I personally performed and the decisions made by , Rex Fernando MD
[2018-06-21 15:50] LABS: ABS Basophils 0.1 10^3/ul (0-0.2); ABS Eosinophils 0.1 10^3/ul (0-0.6); ABS Lymphocytes 1.9 10^3/ul (1.0-4.8); ABS Monocytes 0.6 10^3/ul (0-0.8); ABS Neutrophils 5.7 10^3/ul (1.5-7.7); ABS Nucleated RBC 0 10^3/ul; Hematocrit 39 % (35-47); Hemoglobin 12.9 g/dl (12.0-16.0); Mean Corpuscular HGB Conc 33 g/dl (31-36); Mean Corpuscular Hemoglobin 27 pg (27-31); Mean Corpuscular Volume 81 fL (80-97); Nucleated Red Blood Cells % 0.1; Platelet Count 238 10^3/ul (150-450); Red Cell Distribution Width 15 % (10.5-15); White Blood Count 8.4 10^3/ul (3.5-10.8)
--- NOTE | 2018-06-21 15:52 | RAD ---
HISTORY: HTN COMPARISONS: June 19, 2018 VIEWS: 1: frontal AP view of the chest at 3:35 PM FINDINGS: LINES AND TUBES: None. CARDIOMEDIASTINAL SILHOUETTE: The cardiomediastinal silhouette is normal for portable technique. PLEURA: The costophrenic angles are sharp. No pleural abnormalities are noted. LUNG PARENCHYMA: The lungs are clear. ABDOMEN: The upper abdomen is clear. There is no subphrenic gas. BONES AND SOFT TISSUES: No bone or soft tissue abnormalities are noted. IMPRESSION: NO ACTIVE CARDIOPULMONARY DISEASE.
[2018-06-21 16:09] LABS: EGFR Non-African American 89.4 (>60)
[2018-06-21 17:21] VITALS: BP 128/90
== END 2018-06-21 17:47 | disposition home or self-care (01) ==
LOC: ED 14:53
DX: I10 Essential (primary) hypertension (principal); R07.9 Chest pain, unspecified; R51 Headache
CPT/HCPCS: 36415; 71045; 80053; 82550; 85025; 93005; 96374; 99283

== ENCOUNTER 2018-10-28 14:21 | Emergency (ER) | payer BC ==
--- NOTE | 2018-10-28 14:53 | ED ---
Influenza-Like Illness - HPI Summary HPI Summary: Pt. is a 33 y.o female who presents to the ER for fever, headache, cough, CP with coughing. and myalgias that started 3 days ago. 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 No other past medical hx. Sxs are mild in severity. Fever improved with tylenol/motrin. No current modifying factors. - History of Current Complaint Chief Complaint: EDFluSymptoms Time Seen by Provider: 10/28/18 14:28 Hx Obtained From: Patient - Allergy/Home Medications Allergies/Adverse Reactions: Allergies Allergy/AdvReac Type Severity Reaction Status Date / Time cefaclor [From Ceclor] Allergy Rash Verified 10/28/18 14:26 hydrocodone [From Vicodin] Allergy Hives Verified 10/28/18 14:26 phenazopyridine Allergy Rash Verified 10/28/18 14:26 [From Pyridium] PMH/Surg Hx/FS Hx/Imm Hx Previously Healthy: Yes Endocrine/Hematology History: Denies: Hx Diabetes, Hx Thyroid Disease Cardiovascular History: Reports: Hx Hypertension Denies: Hx Congestive Heart Failure Respiratory History: Denies: Hx Asthma, Hx Chronic Obstructive Pulmonary Disease (COPD) GI History: Denies: Hx Ulcer History: Denies: Hx Renal Disease Musculoskeletal History: Reports: Other Musculoskeletal History - 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 Sensory History: Reports: Hx Contacts or Glasses Denies: Hx Legally Blind, Hx Deafness Opthamlomology History: Reports: Hx Contacts or Glasses Denies: Hx Legally Blind Psychiatric History: Denies: Hx Schizophrenia - Surgical History Surgery Procedure, Year, and Place: R foot FB - Immunization History Date of Tetanus Vaccine: utd Date of Influenza Vaccine: 05/2018 Infectious Disease History: No Infectious Disease History: Denies: Hx Hepatitis, Hx Human Immunodeficiency Virus (HIV), Traveled Outside the [place] in Last 30 Days - Family History Known Family History: Positive: None, Hypertension, Diabetes, Other - porphyria (mother) - Social History Occupation: Employed Full-time Lives: With Family Alcohol Use: None Hx Substance Use: No Substance Use Type: Reports: None Hx Tobacco Use: No Smoking Status (MU): Never Smoked Tobacco Review of Systems Positive: Fever, Chills Eyes: Negative Positive: Nasal Discharge Positive: Chest Pain - with coughing Positive: Cough. Negative: Shortness Of Breath Gastrointestinal: Negative Genitourinary: Negative Positive: Myalgia Skin: Negative Positive: Headache All Other Systems Reviewed And Are Negative: Yes Physical Exam Triage Information Reviewed: Yes Vital Signs On Initial Exam: Initial Vitals Temp Pulse Resp BP Pulse Ox 97.6 F 112 16 144/99 97 10/28/18 14:23 10/28/18 14:23 10/28/18 14:23 10/28/18 14:23 10/28/18 14:23 Vital Signs Reviewed: Yes Appearance: Positive: Well-Appearing - Pt. sitting up in bed in NAD. Children present. Skin: Positive: Warm, Dry Head/Face: Positive: Normal Head/Face Inspection Eyes: Positive: Normal, EOMI ENT: Positive: Pharyngeal erythema, Sinus tenderness. Negative: Tonsillar swelling, Tonsillar exudate Neck: Positive: Supple Respiratory/Lung Sounds: Positive: Clear to Auscultation, Breath Sounds Present Cardiovascular: Positive: Normal, RRR Neurological: Positive: Normal, CN Intact II-III Psychiatric: Positive: Affect/Mood Appropriate Diagnostics - Vital Signs Vital Signs Temp Pulse Resp BP Pulse Ox 10/28/18 14:23 97.6 F 112 16 144/99 97 - Laboratory Lab Statement: Any lab studies that have been ordered have been reviewed, and results considered in the medical decision making process. Flu Symptom Course/Dx - Course Course Of Treatment: Pt. presenting with flu like sxs. She notes fever at home of 102-103F. Pt. concerned with productive cough. Low grade fever in ER and nontoxic appearing. CXR is negative for acute findings. Positive for flu A. Pt. outside of window for tamiflu. Advised to continue supportive care. To f.u with PCP if needed and return to ER if sxs change or worsen. - Diagnoses Differential Diagnosis/HQI/PQRI: Positive: Bronchitis, Influenza, Upper Respiratory Infection Provider Diagnoses: Influenza Discharge - Sign-Out/Discharge Documenting (check all that apply): Patient Departure Patient Received Moderate/Deep Sedation with Procedure: No - Discharge Plan Condition: Good Disposition: HOME Patient Education Materials: Influenza (ED) Forms: *Work Release Referrals: Mady Guzman OFFICE MACHINE SERVICE SUPERVISOR [Primary Care Provider] - Additional Instructions: Follow up with PCP Continue rotating between Tylenol and Motrin every 3 hours as directed for fever and pain Increase fluids and rest Return to ER if symptoms change or worsen - Billing Disposition and Condition Condition: GOOD Disposition: Home
[2018-10-28 15:17] LABS: Influenza A Molecular POSITIVE (Negative)
[2018-10-28 16:22] VITALS: BP 142/86
== END 2018-10-28 16:21 | disposition home or self-care (01) ==
LOC: ED 14:21
DX: J10.1 Influenza due to other identified influenza virus with other respiratory manifestations (principal); Z88.1 Allergy status to other antibiotic agents; Z88.5 Allergy status to narcotic agent; Z88.8 Allergy status to other drugs, medicaments and biological substances
CPT/HCPCS: 71046; 99282

== ENCOUNTER 2019-01-31 02:11 | Emergency (ER) | payer BC ==
[2019-01-31 02:17] VITALS: BP 133/88
--- NOTE | 2019-01-31 02:30 | ED ---
Skin Complaint - HPI Summary HPI Summary: Pt is a 33 y/o female who presents to the ED c/o rash. Yesterday she noticed pruritic spots to her BUE and chest. Pt denies any fever or N/V. She is concerned about chicken pox because her grandfather was recently diagnosed with it. 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 Pt denies any hx of chicken pox, and had a positive titer several years ago. She was vaccinated as a child. - History of Current Complaint Stated Complaint: POSS CHICKEN POX PER PT Hx Obtained From: Patient Hx Last Menstrual Period: IUD Onset/Duration: Started Days Ago - 1, Still Present Timing: Constant Current Severity: None Pain Intensity: 0 Pain Scale Used: 0-10 Numeric Skin Location: Chest, Arm - bilateral Character: Pruritus Associated Signs & Symptoms: Negative Related History: Other: - exposure to chicken pox - Allergy/Home Medications Allergies/Adverse Reactions: Allergies Allergy/AdvReac Type Severity Reaction Status Date / Time cefaclor [From Ceclor] Allergy Rash Verified 01/31/19 02:17 hydrocodone [From Vicodin] Allergy Hives Verified 01/31/19 02:17 phenazopyridine Allergy Rash Verified 01/31/19 02:17 [From Pyridium] PMH/Surg Hx/FS Hx/Imm Hx Endocrine/Hematology History: Denies: Hx Diabetes, Hx Thyroid Disease Cardiovascular History: Reports: Hx Hypertension Denies: Hx Congestive Heart Failure Respiratory History: Denies: Hx Asthma, Hx Chronic Obstructive Pulmonary Disease (COPD) GI History: Denies: Hx Ulcer History: Denies: Hx Renal Disease Musculoskeletal History: Reports: Other Musculoskeletal History - 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 Sensory History: Reports: Hx Contacts or Glasses Denies: Hx Legally Blind, Hx Deafness Opthamlomology History: Reports: Hx Contacts or Glasses Denies: Hx Legally Blind Psychiatric History: Denies: Hx Schizophrenia - Surgical History Surgery Procedure, Year, and Place: R foot FB - Immunization History Date of Tetanus Vaccine: utd Date of Influenza Vaccine: 05/2018 Infectious Disease History: No Infectious Disease History: Denies: Hx Hepatitis, Hx Human Immunodeficiency Virus (HIV), Traveled Outside the [place] in Last 30 Days - Family History Known Family History: Positive: Hypertension, Diabetes, Other - porphyria ( mother) - Social History Alcohol Use: None Hx Substance Use: No Substance Use Type: Reports: None Hx Tobacco Use: No Smoking Status (MU): Never Smoked Tobacco Review of Systems Negative: Fever Negative: Vomiting, Nausea Positive: Rash - pruritic spots on arms and chest All Other Systems Reviewed And Are Negative: Yes Physical Exam - Summary Physical Exam Summary: Appearance: well appearing, no pain distress Skin: warm, dry, reflects adequate perfusion Head/face: normal Eyes: EOMI, LISA ENT: mucous membranes moist Neck: supple, non-tender Respiratory: CTA, breath sounds present Cardiovascular: RRR, pulses symmetrical Abdomen: non-tender, soft Bowel Sounds: present Musculoskeletal: normal, strength/ROM intact Neuro: normal, sensory motor intact, A&Ox3 Triage Information Reviewed: Yes Vital Signs On Initial Exam: Initial Vitals Temp Pulse Resp BP Pulse Ox 98.9 F 95 16 133/88 97 01/31/19 02:12 01/31/19 02:12 01/31/19 02:12 01/31/19 02:12 01/31/19 02:12 Vital Signs Reviewed: Yes Diagnostics - Vital Signs Vital Signs Temp Pulse Resp BP Pulse Ox 01/31/19 02:12 98.9 F 95 16 133/88 97 - Laboratory Lab Statement: Any lab studies that have been ordered have been reviewed, and results considered in the medical decision making process. Course/Dx - Course Course Of Treatment: Patient presents with concern for possible chickenpox exposure. She has absolutely no rash at this time. There is no discernible findings really at all. She also had on review of her records evidence of positive IgG titer to varicella. She does report being vaccinated as are her children. She was discharged and return to work. - Diagnoses Provider Diagnoses: Pruritus Discharge - Sign-Out/Discharge Documenting (check all that apply): Patient Departure - Discharge Patient Received Moderate/Deep Sedation with Procedure: No - Discharge Plan Condition: Good Disposition: HOME Patient Education Materials: Itchy Skin (ED) Referrals: Mady Guzman NP [Primary Care Provider] - Additional Instructions: There is no evidence for chickenpox at this time. Follow-up with your doctor as needed. - Billing Disposition and Condition Condition: GOOD Disposition: Home - Attestation Statements Document Initiated by Scribe: Yes Documenting Scribe: Rachelle Pham Provider For Whom Scribe is Documenting (Include Credential): Blaine Ward MD Scribe Attestation: IRachelle, scribed for Blaine Ward MD on 01/31/19 at 0345. Scribe Documentation Reviewed: Yes Provider Attestation: The documentation as recorded by the scribeRachelle accurately reflects the service I personally performed and the decisions made by me, Blaine Ward MD Status of Scribe Document: Viewed
== END 2019-01-31 02:52 | disposition home or self-care (01) ==
LOC: ED 02:11
DX: L29.9 Pruritus, unspecified (principal); I10 Essential (primary) hypertension; Z88.5 Allergy status to narcotic agent
CPT/HCPCS: 99281

== ENCOUNTER 2019-04-28 17:24 | Emergency (ER) | payer BC ==
[2019-04-28 17:48] VITALS: BP 108/78
--- NOTE | 2019-04-28 18:22 | UC ---
UC General HPI - HPI Summary HPI Summary: 33-year-old woman comes in with a chief complaint of right flank pain and Dysuria. This started several days ago. Patient just finished her menses. She does have an IUD. She also has some suprapubic pain. No complaint of any fevers. She cannot make the right flank pain worse or better. She has a history of kidney stones and she is not sure if she has a kidney stone at this time. Yesterday patient reports she started having intermittent substernal chest pain that severe 8 or 9 out of 10. Each episodes lasts about 15 minutes she short of breath and nauseous sweaty with it. She had an episode just as she was getting here to clinic. She has no history of DVT or pulmonary embolus. She is on Lasix for chronic pedal edema. - History of Current Complaint Chief Complaint: UCBackPain Stated Complaint: LOWER BACK PAIN, CHEST PAIN, Time Seen by Provider: 04/28/19 17:33 Hx Last Menstrual Period: IUD Pain Intensity: 6 - Allergy/Home Medications Allergies/Adverse Reactions: Allergies Allergy/AdvReac Type Severity Reaction Status Date / Time cefaclor [From Ceclor] Allergy Rash Verified 04/28/19 17:48 hydrocodone [From Vicodin] Allergy Hives Verified 04/28/19 17:48 phenazopyridine Allergy Rash Verified 04/28/19 17:48 [From Pyridium] Home Medications: Home Medications Amitriptyline TAB* [Elavil TAB*] 10 mg PO BEDTIME 04/28/19 [History Confirmed ] Escitalopram * [Lexapro 10 mg (NF)] 04/28/19 [History] Losartan Potassium 100 mg PO 04/28/19 [History] Meclizine HCl [Dramamine Less Drowsy] 25 mg PO 04/28/19 [History] Metoprolol Succinate 04/28/19 [History] Ranolazine [Ranolazine ER] 500 mg PO 04/28/19 [History] PMH/Surg Hx/FS Hx/Imm Hx Previously Healthy: Yes - PEDAL EDEMA - Surgical History Surgical History: Yes Surgery Procedure, Year, and Place: R foot FB. vascular surgery 2019 - Family History Known Family History: Positive: Hypertension, Diabetes, Other - porphyria ( mother) - Social History Alcohol Use: None Substance Use Type: None Smoking Status (MU): Never Smoked Tobacco Review of Systems All Other Systems Reviewed And Are Negative: Yes Constitutional: Positive: Negative Skin: Positive: Negative Eyes: Positive: Negative ENT: Positive: Negative Respiratory: Positive: Shortness Of Breath Cardiovascular: Positive: Chest Pain Gastrointestinal: Positive: Abdominal Pain, Nausea Genitourinary: Positive: Dysuria, Frequency Motor: Positive: Negative Neurovascular: Positive: Negative Musculoskeletal: Positive: Edema Neurological: Positive: Negative Psychological: Positive: Negative Is Patient Immunocompromised?: No Physical Exam Triage Information Reviewed: Yes Appearance: Well-Appearing, Well-Nourished, Pain Distress - MILD Vital Signs: Initial Vital Signs Temp 97.1 F 04/28/19 17:28 Pulse 86 04/28/19 17:28 Resp 16 04/28/19 17:28 BP 108/78 04/28/19 17:28 Pulse Ox 98 04/28/19 17:28 Vital Signs Reviewed: Yes Eye Exam: Normal Eyes: Positive: Conjunctiva Clear Neck: Positive: Supple Respiratory: Positive: Lungs clear, Normal breath sounds, No respiratory distress Cardiovascular: Positive: RRR Abdomen Description: Positive: CVA Tenderness (R), Other: - SUPRAPUBIC TENDERNESS. Negative: CVA Tenderness (L) Bowel Sounds: Positive: Present Musculoskeletal: Positive: Strength Intact, ROM Intact, Edema @ - B/L MILD; NO CALF TENDERNESS Neurological: Positive: Alert Psychological: Positive: Age Appropriate Behavior Skin Exam: Normal Diagnostics - EKG Cardiac Rate: NL - AT 1733 Cardiac Rhythm: Sinus: Normal - 77BPM Ectopy: None ST Segment: Normal Course/Dx - Course Course Of Treatment: I discussed the EKG with the patient. I do not see any ischemic changes. I discussed our inability to check for ischemia or pulmonary embolus here. Urine shows leukocytes and blood and given her symptoms is consistent with urinary tract infection. Having the right flank pain could be pyelonephritis however the patient has a history of kidney stones and she is not sure whether she has an active kidney stone at this time based on her pain that she's having. We do not have CT available here in clinic at this time. Because the patient has UTI and she may have a kidney stone I recommended further evaluation in the emergency department. I discussed with her that if she does have An a UTI That She Can Become Septic. Also with the chest pain were unable to further evaluate that here and I recommended further evaluation emergency Department. Patient prefers to go by POV. - Diagnoses Provider Diagnosis: UTI (urinary tract infection), Hematuria, Right flank pain, Chest pain Discharge - Sign-Out/Discharge Documenting (check all that apply): Patient Departure All imaging exams completed and their final reports reviewed: No Studies - Discharge Plan Condition: Stable Disposition: HOME-RECOMMEND TO ED Referrals: Leilani Sagastume PA [Primary Care Provider] - Additional Instructions: GO DIRECTLY TO THE EMERGENCY DEPARTMENT FOR FURTHER EVALUATION OF YOUR CHEST PAIN, RIGHT FLANK PAIN AND UTI SYMPTOMS. YOU NEED FURTHER EVALUATION TO DETERMINE IF YOU HAVE A KIDNEY STONE AND UTI HAVING BOTH CAN MAKE YOU VERY ILL. ALSO, YOUR CHEST PAIN NEEDS TO BE FURTHER EVALUATED FOR POSSIBLE PULMONARY EMBOLIS OR HEART ISCHEMIA. - Billing Disposition and Condition Condition: STABLE Disposition: Home-Recommend to ED
== END 2019-04-28 18:33 | disposition home health service (06) ==
LOC: UCEAST 17:24
DX: N39.0 Urinary tract infection, site not specified (principal); R07.9 Chest pain, unspecified
CPT/HCPCS: 81002; 81025; 93005; 99212; G0463

== ENCOUNTER 2019-04-28 18:45 | Emergency (ER) | payer BC ==
[2019-04-28] MEDS ORDERED: NS 0.9% 1000 ML** 1,000 ML IV ONE (19:08)
[2019-04-28] MEDS ORDERED: Ketorolac INJ* 30 MG/ML 1 ML VIAL IV PUSH ONE (19:09)
[2019-04-28 19:18] LABS: ABS Eosinophils 0.2 10^3/ul (0-0.6); ABS Lymphocytes 3.1 10^3/ul (1.0-4.8); ABS Neutrophils 9.6 10^3/ul (1.5-7.7); Eosinophil % 1.2 %; Hematocrit 42 % (35-47); Lymphocyte % 22.5 %; Mean Corpuscular HGB Conc 33 g/dL (31-36); Mean Corpuscular Hemoglobin 27 pg (27-31); Mean Corpuscular Volume 81 fL (80-97); Mean Platelet Volume 9.1 fL (7.4-10.4); Platelet Count 274 10^3/uL (150-450); Red Cell Distribution Width 15 % (10-15); White Blood Count 13.9 10^3/uL (3.5-10.8)
--- NOTE | 2019-04-28 19:23 | ED ---
GI/ HPI - HPI Summary HPI Summary: 33-year-old female presents with flank pain. She has had a right flank pain and suprapubic pain. She admits to hematuria started today. She states she has been having intermittent chest pain for past couple days. she is not currently having chest pain. She states that it feels very sharp in the center of her chest when she gets it. Chest pain last 15 minutes. Has had this before. Has had a workup for the chest pain before without any results. Denies any shortness of breath. No cough. No recent illness. Denies any nausea vomiting. No diarrhea constipation. Has a history kidney stones. no chest pain currently - History of Current Complaint Chief Complaint: EDUrogenitalProblems Time Seen by Provider: 04/28/19 18:59 Stated Complaint: LOWER BACK PAIN PER PT Hx Last Menstrual Period: IUD Pain Intensity: 6 - Allergy/Home Medications Allergies/Adverse Reactions: Allergies Allergy/AdvReac Type Severity Reaction Status Date / Time cefaclor [From Ceclor] Allergy Rash Verified 04/28/19 17:48 hydrocodone [From Vicodin] Allergy Hives Verified 04/28/19 17:48 phenazopyridine Allergy Rash Verified 04/28/19 17:48 [From Pyridium] PMH/Surg Hx/FS Hx/Imm Hx Endocrine/Hematology History: Denies: Hx Diabetes, Hx Thyroid Disease Cardiovascular History: Reports: Hx Hypertension Denies: Hx Congestive Heart Failure Respiratory History: Denies: Hx Asthma, Hx Chronic Obstructive Pulmonary Disease (COPD) GI History: Denies: Hx Ulcer History: Denies: Hx Renal Disease Musculoskeletal History: Reports: Other Musculoskeletal History - 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 vascular surgery 2019 - Immunization History Date of Tetanus Vaccine: utd Date of Influenza Vaccine: 05/2018 Infectious Disease History: No Infectious Disease History: Denies: Hx Hepatitis, Hx Human Immunodeficiency Virus (HIV), Traveled Outside the [place] in Last 30 Days - Family History Known Family History: Positive: Hypertension, Diabetes, Other - porphyria ( mother) Negative: Cardiac Disease - Social History Alcohol Use: None Hx Substance Use: No Substance Use Type: Reports: None Hx Tobacco Use: No Smoking Status (MU): Never Smoked Tobacco Review of Systems Negative: Fever Positive: Chest Pain Negative: Shortness Of Breath Positive: flank pain, hematuria All Other Systems Reviewed And Are Negative: Yes Physical Exam Triage Information Reviewed: Yes Vital Signs On Initial Exam: Initial Vitals Temp Pulse Resp BP Pulse Ox 98.1 F 78 14 132/77 98 04/28/19 18:46 04/28/19 18:46 04/28/19 18:46 04/28/19 18:46 04/28/19 18:46 Vital Signs Reviewed: Yes Appearance: Positive: Well-Appearing Skin: Positive: Warm, Dry Head/Face: Positive: Normal Head/Face Inspection Eyes: Positive: Normal, EOMI, LISA, Conjunctiva Clear ENT: Positive: Normal ENT inspection, Pharynx normal, TMs normal Respiratory/Lung Sounds: Positive: Clear to Auscultation, Breath Sounds Present Cardiovascular: Positive: Normal, RRR Abdomen Description: Positive: Soft, CVA Tenderness (R), Other: - tenderness suprapubic. Negative: CVA Tenderness (L) Bowel Sounds: Positive: Present Musculoskeletal: Positive: Normal Neurological: Positive: Normal Psychiatric: Positive: Normal Diagnostics - Vital Signs Vital Signs Temp Pulse Resp BP Pulse Ox 04/28/19 18:46 98.1 F 78 14 132/77 98 - Laboratory Result Diagrams: 04/28/19 19:02 04/28/19 19:02 Lab Statement: Any lab studies that have been ordered have been reviewed, and results considered in the medical decision making process. - CT abd CT Interpretation Completed By: Radiologist Summary of CT Findings: IMPRESSION: 1. No CT findings to correlate with patient 's symptomatology. Specifically no. obstructing renal or ureteral calculi. 2. Simple hepatic cyst. No followup imaging indicated per ACR guidelines. Re-Evaluation - Re-Evaluation First Eval Re-Evaluation Time: 20:15 Change: Improved Comment: feeling better GIGU Course/Dx - Course Course Of Treatment: 33-year-old female presents with flank pain. She has had a right flank pain and suprapubic pain. She admits to hematuria started today. She states she has been having intermittent chest pain for past couple days. she is not currently having chest pain. She states that it feels very sharp in the center of her chest when she gets it. Chest pain last 15 minutes. Has had this before. Has had a workup for the chest pain before without any results. Denies any shortness of breath. No cough. No recent illness. Denies any nausea vomiting. No diarrhea constipation. Has a history kidney stones. On exam tenderness in the right flank. ekg at shows sinus rhythm. wbc 13.9. crp slightly elevated. d-dimer neg. troponin zero. CT shows no acute findings. urine at urgent care showed uti so will treat as such with augmentin as states she has taken it in the past. - Diagnoses Differential Diagnoses - Female: Pyelonephritis, Urinary Tract Infection, Ureteral Calculi Provider Diagnoses: UTI (urinary tract infection), Flank pain, Chest pain Discharge - Sign-Out/Discharge Documenting (check all that apply): Patient Departure Patient Received Moderate/Deep Sedation with Procedure: No - Discharge Plan Condition: Good Disposition: HOME Prescriptions: Amoxicillin/Clavulanate TAB* [Augmentin TAB 875*] 875 mg PO BID #13 tab Patient Education Materials: Urinary Tract Infection in Women (ED) Referrals: Leilani Sagastume PA [Primary Care Provider] - Additional Instructions: take Augmentin twice a day for 7 days Take Tylenol or ibuprofen every 6 hours for pain Follow up with primary within 5 days drink plenty of fluids Return to ED if develop any new or worsening symptoms - Billing Disposition and Condition Condition: GOOD Disposition: Home
[2019-04-28 19:28] LABS: INR 1.23 (0.82-1.09)
[2019-04-28 19:36] LABS: ALT 17 U/L (7-52); AST 11 U/L (13-39); Albumin 4.4 g/dL (3.2-5.2); Albumin/Globulin Ratio 1.5 (1-3); Alkaline Phosphatase 34 U/L (34-104); Anion Gap 8 mmol/L (2-11); Blood Urea Nitrogen 17 mg/dL (6-24); C Reactive Protein 30.66 mg/L (<8.01); CO2 Carbon Dioxide 28 mmol/L (22-32); Calcium 9.5 mg/dL (8.6-10.3); Chloride 103 mmol/L (101-111); EGFR African American 78.2 (>60); EGFR Non-African American 64.7 (>60); Glucose 93 mg/dL (70-100); Potassium 4.1 mmol/L (3.5-5.0); Sodium 139 mmol/L (135-145); Total Protein 7.4 g/dL (6.4-8.9)
[2019-04-28 19:41] LABS: HCG Pregnancy < 0.60 mIU/mL
[2019-04-28] MEDS ORDERED: Amoxicillin/Clavulanate TAB* 875 MG PO ONE (21:11)
[2019-04-28 21:31] VITALS: BP 116/64
[2019-04-28 21:53] LABS: Urine Appearance Cloudy; Urine Bacteria Absent (Absent); Urine Bilirubin Negative (Negative); Urine Blood 2+ (Negative); Urine Color Yellow; Urine Glucose Negative (Negative); Urine Ketones Negative (Negative); Urine Nitrite Negative (Negative); Urine Protein Negative (Negative); Urine Red Blood Cell 3+(>10/hpf) (Absent); Urine Specific Gravity 1.011 (1.010-1.030); Urine Squamous Epithelial Cell Present (Absent); Urine Urobilinogen Negative (Negative); Urine White Blood Cell 3+(>20/hpf) (Absent)
== END 2019-04-28 21:30 | disposition home or self-care (01) ==
LOC: ED 18:45
DX: N39.0 Urinary tract infection, site not specified (principal); R31.9 Hematuria, unspecified; M54.5 Low back pain; R07.89 Other chest pain; K76.89 Other specified diseases of liver; I10 Essential (primary) hypertension; Z87.442 Personal history of urinary calculi; Z88.1 Allergy status to other antibiotic agents; Z88.5 Allergy status to narcotic agent; Z88.8 Allergy status to other drugs, medicaments and biological substances
CPT/HCPCS: 36415; 74176; 80053; 81003; 81015; 83690; 84484; 84702; 85025; 85379; 85610; 86140; 87086; 93005; 96361; 96374; 99284; A9270-GY; J1885

== ENCOUNTER 2022-01-06 05:38 | Inpatient (IN) ==
[2022-01-06] MEDS ORDERED: Lactated Ringers 1000 ml BAG 1,000 ML IV SCH (06:00)
[2022-01-06] MEDS ORDERED: Buffered Lidocaine 1% SYRIN 1 ml INTRADERM ONE ×2 (06:00→06:53)
[2022-01-06] MEDS ORDERED: Famotidine IV 10 MG/ML 2 ml VIAL (20 mg) IV ONE (06:00)
[2022-01-06] MEDS ORDERED: Scopolamine 1 mg/72hr PATCH ONE (06:13)
[2022-01-06] MEDS ORDERED: Clindamycin 900 MG/D5W BAG 900 MG/50 ML BAG IVPB ONE (06:14)
[2022-01-06] MEDS ORDERED: Famotidine IV 10 MG/ML 2 ml VIAL (20 mg) ONE (06:14)
[2022-01-06] MEDS ORDERED: Heparin 5000 UNITS/ML 1 mL VIAL ONE (06:14)
[2022-01-06] MEDS ORDERED: Methylene Blue 0.5 % 50 MG/10 ML AMP IV ONE (06:53)
[2022-01-06] MEDS ORDERED: Bupivacaine 0.25% SDV PF 10 ML VIAL INJ ONE (06:53)
[2022-01-06] MEDS ORDERED: Rocuronium 50 mg VIAL 10 mg/ml 5 ml VIAL (50 mg) ONE (06:54)
[2022-01-06] MEDS ORDERED: Lidocaine 2% PF 5 ML VIAL ONE (06:54)
[2022-01-06] MEDS ORDERED: fentaNYL 100 mcg/2 ml 50 MCG/ML VIAL ONE ×4 (06:54→12:52)
[2022-01-06] MEDS ORDERED: Midazolam 2 mg/2 ml VIAL 1 mg/ml 2 ml VIAL (2 mg) ONE (06:54)
[2022-01-06] MEDS ORDERED: Propofol 10 MG/ML 20 ML BTL ONE (06:54)
[2022-01-06] MEDS ORDERED: Phenylephrine 40 mcg/mL 10mL (400mcg) SYRINGE ONE (08:16)
[2022-01-06] MEDS ORDERED: Phenylephrine IV 10 MG/ML 1 ml VIAL ONE (08:40)
[2022-01-06] MEDS ORDERED: Ondansetron 4 mg VIAL 2 MG/ML 2 ml VIAL IV PRN ×2 (08:50→11:29)
[2022-01-06] MEDS ORDERED: Ondansetron 4 mg VIAL 2 MG/ML 2 ml VIAL ONE ×2 (08:50→11:44)
[2022-01-06] MEDS ORDERED: Dexamethasone IV 4 MG/ML VIAL 1 ml VIAL ONE (08:50)
[2022-01-06] MEDS ORDERED: Naloxone 0.4 mg VIAL 0.4 mg/ml 1 ml VIAL IV PRN (08:50)
[2022-01-06] MEDS ORDERED: HYDROmorphone 0.5 MG/0.5 ML SYRINGE ONE (10:01)
[2022-01-06] MEDS ORDERED: Acetaminophen IV 1 GM/100ML 100 ML IV ONE (10:02)
[2022-01-06] MEDS ORDERED: HYDROmorphone 0.5 MG/0.5 ML SYRINGE IV SLOW PU PRN (11:29)
[2022-01-06] MEDS: fentaNYL 100 mcg/2 ml 50 MCG/ML VIAL IV PRN ×4 (11:45→13:04)
[2022-01-06] MEDS ORDERED: HYDROmorphone 1 MG/1 ML SYRINGE ONE (12:30)
[2022-01-06] MEDS ORDERED: DiMENhydriNATE IV 50 mg/ml 1 ml VIAL IV PUSH ONE (12:34)
[2022-01-06] MEDS ORDERED: DiMENhydriNATE IV 50 mg/ml 1 ml VIAL ONE (12:36)
[2022-01-06] MEDS: Lactated Ringers 1000 ml BAG 1,000 ML IV SCH ×2 (14:20→21:40)
[2022-01-06] MEDS: Acetaminophen IV 1 GM/100ML 100 ML IV SCH ×2 (15:24→20:22)
[2022-01-06] MEDS: Heparin 5000 UNITS/ML 1 mL VIAL SUBCUT SCH (22:46)
[2022-01-07] MEDS: Acetaminophen IV 1 GM/100ML 100 ML IV SCH ×2 (03:20→09:05)
[2022-01-07] MEDS: Lactated Ringers 1000 ml BAG 1,000 ML IV SCH (04:24)
[2022-01-07] MEDS: Heparin 5000 UNITS/ML 1 mL VIAL SUBCUT SCH ×2 (05:56→14:49)
[2022-01-07 11:01] VITALS: BP 113/50
[2022-01-07] MEDS ORDERED: D5W 1/2 NS KCl 20 meq 1000 ml 1,000 ML IV SCH (12:00)
== END 2022-01-07 15:45 | disposition home or self-care (01) | DRG 403 ==
LOC: AA 05:38 → SSU 14:43
PROVIDERS: ADMIT Surgery; ATTEND Surgery